=== PATIENT | male | born 1960 ===

== ENCOUNTER 2017-11-28 05:18 | Inpatient (IN) | payer OTHER ==
[2017-11-28] VITALS (11 sets, daily range): BP systolic 113–136; BP diastolic 58–78
[~2017-11-28] VITALS: Ht 177.8 cm; Wt 115.8 kg
[~2017-11-28 05:18] MED LIST: ATORVASTATIN CA20 MG ORAL; FENOFIBRATE54 MG ORAL; GLIPIZIDE5 MG ORAL; LISINOPRIL10 MG ORAL; METFORMIN HCL850 M1 ORAL
[2017-11-28] MEDS ORDERED: celeBREX 200mg Cap **SURGERY PATIENTS ONLY ORAL ONE (06:00)
[2017-11-28] MEDS ORDERED: ceFAZolin sod 1 GM in D5W 110 ML IVP ONE (06:00)
[2017-11-28] MEDS ORDERED: Midazolam 2mg/2ml Inj ONE (06:12)
[2017-11-28] MEDS ORDERED: fentaNYL 100 mcg/2 mL IV ONE (06:12)
[2017-11-28] MEDS ORDERED: Duramorph PF 5mg/10ml amp ONE (06:15)
[2017-11-28] MEDS ORDERED: Succinylcholine 20mg/ml 10ml vial ONE (06:16)
[2017-11-28] MEDS ORDERED: Propofol 200mg/20ml IV ONE (06:25)
[2017-11-28] MEDS ORDERED: EPINEPHrine 1mg/1ml Amp ONE (06:44)
[2017-11-28] MEDS ORDERED: Bupivacaine 0.5% Inj 30 ml vial INJ ONE (06:45)
[2017-11-28] MEDS ORDERED: Bacitracin 50000 Units Vial ONE (06:45)
[2017-11-28] MEDS ORDERED: NeoSporin Gu Irrig 1ml Amp IRRIG ONE (06:45)
--- NOTE | 2017-11-28 06:51 | Pre-Procedure Note/Attestation ---
Pre-Procedure Note/Attestation Complete Prior to Procedure Planned Procedure: left Procedure Narrative: left total hip arthroplasty Indications for Procedure Pre-Operative Diagnosis: left hip avn Attestation I attest that I discussed the nature of the procedure; its benefits; risks and complications; and alternatives (and the risks and benefits of such alternatives ), prior to the procedure, with the patient (or the patient's legal tour sales representative). I attest that, if there was a reasonable possibility of needing a blood transfusion, the patient (or the patient's legal tour sales representative) was given the [facility] standardized written summary, pursuant to the Pool Yolanda Blood Safety Act ([place] Health and Safety Code # 1645, as amended). I attest that I re-evaluated the patient just prior to the surgery and that there has been no change in the patient's H&P, except as documented below: none Franklin Rinaldi MD Nov 28, 2017 06:51
[2017-11-28] MEDS ORDERED: NS Irrig 1000ml ONE (07:00)
[2017-11-28] MEDS ORDERED: LR 1000ml ONE (07:00)
[2017-11-28] MEDS ORDERED: Sterile Water Irrig 1000ml IRRIG ONE (07:00)
[2017-11-28] MEDS ORDERED: Tranexamic Acid 1,000 MG in NS 65 ML IVPB ONE (07:00)
[2017-11-28] MEDS ORDERED: NS Irrig 2000ml IRRIG ONE (07:00)
[2017-11-28] MEDS ORDERED: ePHEDrine 50mg/ml Inj ONE (07:41)
[2017-11-28] MEDS ORDERED: Sodium Chloride 10ml vial INJ ONE (07:42)
--- NOTE | 2017-11-28 08:08 | Anethesia Preoperative Eval ---
Anesthesia Pre-op PMH/ROS General Date of Evaluation: Nov 28, 2017 Time of Evaluation: 06:52 Anesthesiologist: Anny ASA Score: ASA 3 Mallampati Score Class I : Soft palate, uvula, fauces, pillars visible Class II: Soft palate, uvula, fauces visible Class III: Soft palate, base of uvula visible Class IV: Only hard plate visible Mallampati Classification: Class II Surgeon: Glenny Diagnosis: L hip DJD Surgical Procedure: L hip arthroplasty Anesthesia History: none Family History: no anesthesia problems Allergies: Coded Allergies: ACETAMINOPHEN (Verified Allergy, Unknown, 11/22/17) HYDROCODONE (Verified Adverse Reaction, Severe, short of breast; tightness in the chest, 11/27/17) Medications: see eMAR Past Medical History Cardiovascular: Reports: HTN; Denies: CAD, KS, valve dz, arrhythmia, other Pulmonary: Denies: asthma, COPD, JENNY, other Gastrointestinal/Genitourinary: Reports: GERD - mild; Denies: CRI, ESRD, other Neurologic/Psychiatric: Reports: other - chronic pain; Denies: dementia, CVA, depression/anxiety, TIA Endocrine: Reports: DM - stable on pills; Denies: hypothyroidism, steroids, other HEENT: Denies: cataract (L), cataract (R), glaucoma, LITTLE TRAVERSE (L), LITTLE TRAVERSE (R), other Hematology/Immune: Denies: anemia, DVT, bleeding disorder, other Musculoskeletal/Integumentary: Reports: DJD Other: other - overweight PMH Narrative: as above PSxH Narrative: see H&P Anesthesia Pre-op Phys. Exam Physician Exam Last Vital Signs Date Time Temp Pulse Resp B/P (MAP) Pulse Ox O2 Delivery O2 Flow Rate FiO2 11/28/17 06:05 97.8 55 18 136/77 97 Room Air 97.8 Constitutional: NAD Neurologic: CN 2-12 intact Cardiovascular: RRR, no M/R/G Respiratory: CTA Gastrointestinal: S/NT/ND Airway Exam Mallampati Score: Class II MO: full Neck: short ROM: full Teeth: missing Dentures: no upper, no lower Anesthesia Pre-op A/P Labs see chart Accucheck 119 at admission Studies Pre-op Studies: EKG - NSR, CXR - WNL Risk Assessment & Plan Assessment: ASA 3 Plan: SAB vs GA Status Change Before Surgery: No Pre-Antibiotics Drug: Ancef 2 gr. Given Within 1 Hr of Incision: Yes Time Given: 08:28 Jose Mccormick MD Nov 28, 2017 08:08
[2017-11-28] MEDS ORDERED: LR 1000ml 1,000 ML IVLG SCH (08:09)
[2017-11-28] MEDS ORDERED: Ketorolac 30mg Inj IV PRN (08:15)
[2017-11-28] MEDS ORDERED: fentaNYL 100 mcg/2 mL IV PRN (08:15)
[2017-11-28] MEDS ORDERED: Meperidine 50mg/ml Inj(FOR RIGORS ONLY) IV PRN (08:15)
[2017-11-28] MEDS ORDERED: DiphenhydrAMINE 50mg/ml Inj IVP PRN (08:15)
[2017-11-28] MEDS ORDERED: Docusate 100mg cap ORAL SCH (09:00)
[2017-11-28] MEDS ORDERED: Enoxaparin 40mg Inj SUBQ SCH (09:00)
[2017-11-28] MEDS ORDERED: celeBREX 200mg Cap **SURGERY PATIENTS ONLY ORAL SCH (09:00)
[2017-11-28] MEDS ORDERED: oxyCONTIN 20mg tab ORAL SCH (09:00)
--- NOTE | 2017-11-28 09:45 | Brief Operative Note ---
Immediate Post Operative Note Operative Note Chief Complaint: left hip pain Pre-op Diagnosis: left hip avn Procedure: left total hip arthroplasty Post-op Diagnosis: same as pre-op Findings: consistent w/pre-op dx studies Surgeon: md landry [employer] Supervisor: marcus giraldo Anesthesiologist: md grant Anesthesia: general Specimen: yes Complications: none Condition: stable Fluids: ns Estimated Blood Loss: minimal Drains: none Implant(s) used?: Yes - honeycutt and nephGeraldine Muñiz Nov 28, 2017 09:45
--- NOTE | 2017-11-28 09:53 | Immediate Post-Op Evaluation ---
Immediate Post-Op Evalulation Immediate Post-Op Evalulation Procedure: L total hip arthroplasty Date of Evaluation: Nov 28, 2017 Time of Evaluation: 09:52 IV Fluids: 1800 Blood Products: none Estimated Blood Loss: 200 Urinary Output: 120 Blood Pressure Systolic: 114 Blood Pressure Diastolic: 64 Pulse Rate: 68 Respiratory Rate: 20 O2 Sat by Pulse Oximetry: 99 Temperature (Fahrenheit): 98.3 Pain Score (1-10): 2 Nausea: No Vomiting: No Complications none Patient Status: reacts, patent, none Hydration Status: adequate Jose Mccormick MD Nov 28, 2017 09:53
--- NOTE | 2017-11-28 10:11 | Diagnostic Imaging Report ---
Indication: Intraoperative imaging Technique: One view of the pelvis Comparison: none Findings: Intraoperative imaging demonstrates the acetabular cup of a left hip arthroplasty prosthesis, and a femoral broach. The catheter is in place. Impression: Intraoperative imaging, as described
--- NOTE | 2017-11-28 11:15 | Operative Note - Dictated ---
DATE OF OPERATION: 11/28/2017 PREOPERATIVE DIAGNOSIS: Left hip end-stage arthritis. POSTOPERATIVE DIAGNOSIS: Left hip end-stage arthritis. PROCEDURE: Left total hip arthroplasty using and Nephew system, size 10 Anthology femoral component with standard offset, size 54 mm R3 3-hole hemispheric cup, 36-mm Oxinium head with an ultra cross-linked poly with 20-degree lip liner, with 2 dome screws in the acetabular cup. SURGEON: Franklin Rinaldi M.D. PEDIATRICIAN MANAGING PARTNER: Geraldine Wolfe PA-C. ANESTHESIOLOGIST: Dr. Mccormick. ANESTHESIA: Spinal anesthesia. ESTIMATED BLOOD LOSS: A 150 mL. COMPLICATIONS: None. BRIEF HISTORY: The patient is a pleasant 57-year-old gentleman who has had ongoing left hip pain. This has been intractable pain. He has not been able to really ambulate very well and he has had left-sided anterior groin pain. He failed nonoperative treatment. After full discussion of the risks and benefits of the surgery including infection, bleeding, neurovascular complication, possibility of leg-length discrepancy, possibility of DVT and PE, continued pain, limping, and need for revision arthroplasty down the line as well as possible resection arthroplasty in case of infection, and other surgery that may come about, he opted for surgical treatment as described above. OPERATIVE PROCEDURE: The patient was brought to the operating room and placed supine. All pressure points were well padded. Spinal anesthesia was induced. The left hip was prepped and draped in usual sterile fashion. The patient was placed in right lateral decubitus position with peg board and all pressure points were well padded prior to prepping and draping. Once this was completed and the patient was prepped and draped, the standard posterolateral approach to the hip was undertaken after time-out was performed. Preoperative antibiotics were given and tranexamic acid was given. A posterolateral approach was undertaken and the gluteal fascia was opened and tensor fascia was opened. Charnley retractors were placed and the short external rotators were divided and the capsule was T'd. The femoral head was dislocated and a standard femoral neck cut was performed without any complication. Once this was completed, the head measured 51 mm. Anterior acetabular retractors were placed in and smooth K-wires were placed around the acetabulum for exposure. The labrum was resected and sequential reaming was performed to medialize from 47 mm up to 54 mm. The inclination and retroversion was recreated. Once this was performed, the wounds were thoroughly irrigated. A 54-mm trial component was placed and appeared to be well-seated. At this point, a 54-mm R3 acetabular cup was then placed and placed in approximately 45 degrees of inclination and 30 degrees of anteversion and was malleted in. There was excellent stability of the cup. At this point, two additional dome screws were placed in. An ultra cross-linked liner was then placed in with a 20-degree lip. This was locked in without any complications. At this point, care was given to the femoral side. The femur was internally rotated. The box press operator was used to lateralize the entry point. The entry point was obtained using a canal finder. The sequential broaching was performed all the way up to size 10 broach, which provided excellent stability axially and rotationally. At this point, the sizing of the neck was performed and +8 mm appeared to be the right size. Intraoperative x-rays were obtained which showed that the canal was filled and acetabular cup was in excellent position and was medialized. Wounds were thoroughly irrigated using copious amount of fluid. At this point, the trial components were removed and the canal was thoroughly irrigated using copious amount of fluid. At this point, a size 10 femoral component was then inserted and seated in without any complication. This provided excellent stability. The canal was completely filled. There was excellent position of the femoral component and acetabular component. At this point, sizing was performed and +8 neck length appeared to be the right size. Therefore at this point, a +8 Oxinium head was then applied and Stone taper was dried. Wounds were thoroughly irrigated using copious amount of fluid. The Stone taper on the femoral head was then checked and rechecked, and appeared to be perfect. At this point, the entire construct was reduced. The length appeared to be perfect. Leg lengths were checked and appeared to be perfect, and stability was checked at 0, 30 degrees, 45 degrees, and 90 degrees of internal rotation with hip in neutral abduction and there was excellent stability, and there was no dislocation all the way up to 75 to 80 degrees of internal rotation. Anterior stability was checked and appeared to be perfect. The leg lengths as measured from the knee and the foot were checked and appeared to be perfect. At this point, all wounds were thoroughly irrigated using copious amount of fluid. The short external rotators were closed using #2 FiberWire suture. Intraoperative final x-rays were obtained and the leg lengths appeared to be perfect and component placement was perfect. Wounds were thoroughly irrigated and the tensor fascia was closed using #1 Vicryl suture. Subcutaneous tissue was closed using 2-0 Vicryl suture and skin was closed using 3-0 Monocryl suture. Lap counts and instrument counts were all correct. Abduction pillow was applied. The patient was taken to recovery room in stable condition. Franklin Rinaldi M.D. DR: Elder JOB#: [id number] CC: BRENNA
--- NOTE | 2017-11-28 11:31 | Diagnostic Imaging Report ---
Indication: Postoperative, status post hip surgery Technique: One view of the pelvis Comparison: 2 hours earlier Findings: Interim completion of left hip arthroplasty, with acetabular cup and femoral stem in place in good position. Air from the surgical exposure is seen within the soft tissues. There is a Jauregui catheter Impression: Postoperative left hip, as described. No unusual features
[2017-11-28] MEDS ORDERED: Milk of Magnesia 30ml Ud ORAL PRN (12:00)
[2017-11-28] MEDS ORDERED: Morphine Sulfate 2mg/ml Inj IVP PRN ×2 (12:30)
[2017-11-28] MEDS ORDERED: Morphine Sulfate 4mg/ml Inj IVP PRN (12:30)
[2017-11-28] MEDS: NovoLOG Insulin Flexpen SUBQ SCH ×3 (12:34→21:22)
[2017-11-28] MEDS: 1/2NS w/KCl 20mEq 1000ml 1,000 ML IV SCH ×2 (12:34→23:39)
[2017-11-28] MEDS: Docusate 100mg cap ORAL SCH ×2 (12:37→17:15)
[2017-11-28] MEDS ORDERED: D5 1/2NS w/KCl 20mEq 1,000 ML IV SCH (13:00)
[2017-11-28] MEDS ORDERED: ceFAZolin sod 2 GM in D5W 110 ML IV SCH (16:30)
[2017-11-28] MEDS: ceFAZolin 2gm/50ml Premix 50 ML IV SCH ×2 (17:05→23:39)
[2017-11-28] MEDS: Atorvastatin 20mg tab ORAL SCH (21:11)
[2017-11-28] MEDS: oxyCONTIN 20mg tab ORAL SCH (21:12)
--- NOTE | 2017-11-28 21:33 | General Progress Note ---
Assessment/Plan Status Narrative S/P TOTAL HIP [id number] PHYSICAL THERPAY OCCUPATIONAL THERAPY PERIOPERATIE ANTIBIOTIC PROPHYLAXIS PAINCONTROL DVT PROPHYLAXIS HISTOYR OF DIABETES ADA DIET ACCU CHECK SLIDING SCALE MONITOR BMP HOLD METFORMIN HOLD GLIPIZIDE IT CAN CAUSE HYPOGLYCEMIA PERIOPERATIVELY START JANUVIA 100 DAILY FOLLW CLOSLEY MONITOR CBC AND BMP DAILY. Subjective Date patient seen: Nov 28, 2017 Time patient seen: 21:30 Allergies: Coded Allergies: ACETAMINOPHEN (Verified Allergy, Unknown, 11/22/17) HYDROCODONE (Verified Adverse Reaction, Severe, short of breast; tightness in the chest, 11/27/17) Subjective S/P TOTAL HIP ARTHROPLASTY DOIGN WELL NO CHRISSIE STPAIN NO SOB NO HYPOGLYCEMIA NO HEADACHE NODIPLOPIA TOOK OXYCONTIN NO PAIN NOW. Objective Last 24 Hour Vital Signs Date Time Temp Pulse Resp B/P (MAP) Pulse Ox O2 Delivery O2 Flow Rate FiO2 11/28/17 16:00 98.7 65 18 136/77 100 Room Air 98.7 11/28/17 11:23 98.7 52 18 125/70 100 Nasal Cannula 3 98.7 11/28/17 10:45 98.7 61 17 126/69 100 Nasal Cannula 3 98.7 11/28/17 10:30 54 16 131/68 100 Nasal Cannula 3 11/28/17 10:15 56 17 124/72 100 Nasal Cannula 3 11/28/17 10:05 54 18 115/68 100 Nasal Cannula 3 11/28/17 09:55 56 17 114/65 100 Nasal Cannula 3 11/28/17 09:53 208.9 68 20 99 11/28/17 09:50 65 18 113/68 100 Simple Mask 6 11/28/17 09:45 98.2 62 20 114/58 100 Simple Mask 6 98.2 11/28/17 06:05 97.8 55 18 136/77 97 Room Air 97.8 Intake and Output 11/27/17 11/28/17 19:00 07:00 # Voids 1 Height (Feet): 5 Height (Inches): 10.00 Weight (Pounds): 210 General Appearance: WD/WN EENT: PERRL/EOMI Neck: non-tender Cardiovascular: normal rate, regular rhythm, no JVD Respiratory/Chest: lungs clear Abdomen: soft Extremities: other - NO EDEMA Grant Patel MD Nov 28, 2017 21:33
[2017-11-29] VITALS: BP 116/66
[2017-11-29 04:00] VITALS: BP 121/68
[2017-11-29] MEDS: oxyCODONE 5mg IR tab ORAL PRN (06:15)
[2017-11-29] MEDS: NovoLOG Insulin Flexpen SUBQ SCH ×4 (06:20→21:27)
[2017-11-29 07:42] VITALS: BP 131/64
--- NOTE | 2017-11-29 07:46 | Orthopedic Progress Note ---
Orthopedic - Progress Note Subjective Symptoms: improved Objective Vital Signs Last 24 Hour Vital Signs Date Time Temp Pulse Resp B/P (MAP) Pulse Ox O2 Delivery O2 Flow Rate FiO2 11/29/17 07:42 98.5 74 18 131/64 99 Room Air 98.5 11/29/17 04:00 97.8 62 18 121/68 99 Room Air 97.8 11/29/17 00:00 98.2 61 18 116/66 98 Room Air 98.2 11/28/17 20:00 98.4 63 18 117/78 100 Room Air 98.4 11/28/17 16:00 98.7 65 18 136/77 100 Room Air 98.7 11/28/17 11:23 98.7 52 18 125/70 100 Nasal Cannula 3 98.7 11/28/17 10:45 98.7 61 17 126/69 100 Nasal Cannula 3 98.7 11/28/17 10:30 54 16 131/68 100 Nasal Cannula 3 11/28/17 10:15 56 17 124/72 100 Nasal Cannula 3 11/28/17 10:05 54 18 115/68 100 Nasal Cannula 3 11/28/17 09:55 56 17 114/65 100 Nasal Cannula 3 11/28/17 09:53 208.9 68 20 99 11/28/17 09:50 65 18 113/68 100 Simple Mask 6 11/28/17 09:45 98.2 62 20 114/58 100 Simple Mask 6 98.2 I&O Intake and Output 11/28/17 11/29/17 19:00 07:00 Intake Total 2260 ml 875 ml Output Total 350 ml 980 ml Balance 1910 ml -105 ml Intake Oral 200 ml IV Total 2260 ml 675 ml Output Urine Total 150 ml 980 ml Estimated Blood Loss 200 ml Wound: clean, dry, intact Drains: none Neuro Status: normal Vascular Status: normal Additional Comments xray: excellent Assessment Post-op Diagnosis POD 1 Procedure Performed left total hip arthroplasty Plan Plan: discharge plan - snf on monday, other - todays labs pending. bubba f/u Geraldine Wolfe Nov 29, 2017 07:46
[2017-11-29 08:04] LABS: BASOPHILS % (AUTO) 0.8 % (0.0-2.0); EOSINOPHILS % (AUTO) 1.1 % (0.0-3.0); HEMATOCRIT 33.2 % (42.0-52.0); HEMOGLOBIN 11.3 G/DL (14.2-18.0); LYMPHOCYTES % (AUTO) 21.7 % (20.0-45.0); MEAN CORPUSCULAR VOLUME 87 FL (80-99); MONOCYTES % (AUTO) 9.4 % (1.0-10.0); PLATELET COUNT 136 K/UL (150-450); RED BLOOD COUNT 3.81 M/UL (4.70-6.10); RED CELL DISTRIBUTION WIDTH 11.9 % (11.6-14.8); WHITE BLOOD COUNT 8.9 K/UL (4.8-10.8)
[2017-11-29 08:21] LABS: ANION GAP 6 mmol/L (5-15); BLOOD UREA NITROGEN 14 mg/dL (7-18); CALCIUM 8.3 MG/DL (8.5-10.1); CARBON DIOXIDE 26 MMOL/L (21-32); CHLORIDE 103 MMOL/L (98-107); CREATININE 0.8 MG/DL (0.55-1.30); POTASSIUM 3.7 MMOL/L (3.5-5.1); SODIUM 135 MMOL/L (136-145)
[2017-11-29] MEDS: ceFAZolin 2gm/50ml Premix 50 ML IV SCH ×2 (08:36→16:34)
[2017-11-29] MEDS: Docusate 100mg cap ORAL SCH ×3 (08:36→17:59)
[2017-11-29] MEDS: Lisinopril 10mg tab ORAL SCH (08:36)
[2017-11-29] MEDS: celeBREX 200mg Cap **SURGERY PATIENTS ONLY ORAL SCH (08:37)
[2017-11-29] MEDS: oxyCONTIN 20mg tab ORAL SCH ×2 (08:38→20:57)
--- NOTE | 2017-11-29 09:21 | 48 Hour Post Anesthesia Eval ---
Post Anesthesia Evaluation Procedure: L total hip arthroplasty Date of Evaluation: Nov 29, 2017 Time of Evaluation: 07:42 Blood Pressure Systolic: 131 0: 64 Pulse Rate: 74 Respiratory Rate: 18 Temperature (Fahrenheit): 98.5 O2 Sat by Pulse Oximetry: 99 Airway: patent Nausea: No Vomiting: No Pain Intensity: 0 Hydration Status: adequate Cardiopulmonary Status: at baseline Mental Status/LOC: patient returned to baseline Post-Anesthesia Complications: 0 Follow-up care needed: N/A - further care as per primary team JESSICA NAVA M.D. Nov 29, 2017 09:21
[2017-11-29] MEDS: Enoxaparin 40mg Inj SUBQ SCH (09:32)
[2017-11-29 12:00] VITALS: BP 133/71
[2017-11-29] MEDS: 1/2NS w/KCl 20mEq 1000ml 1,000 ML IV SCH (16:34)
[2017-11-29 16:40] VITALS: BP 111/60
[2017-11-29 20:00] VITALS: BP 133/65
[2017-11-29] MEDS: Atorvastatin 20mg tab ORAL SCH (20:57)
--- NOTE | 2017-11-29 23:15 | Consultation ---
DATE OF CONSULTATION: 11/29/2017 CONSULTING PHYSICIAN: Grant Patel M.D. HISTORY: The patient is status post hip arthroplasty, has history of diabetes, his blood sugar is ranging okay. Denies nausea or vomiting. Denies history of chest pain. Denies any chest tightness. He denies any double vision or blurred vision. PAST MEDICAL HISTORY: Diabetes. PHYSICAL EXAMINATION: VITAL SIGNS: Stable. HEENT: Normocephalic and atraumatic. Anicteric sclerae. HEART: S1 and S2 regular. LUNGS: Clear to auscultation. ABDOMEN: Soft. EXTREMITIES: No clubbing or cyanosis. IMPRESSION: 1. Status post total hip arthroplasty. 2. Perioperative blood loss. 3. Expected anemia postoperative. 4. History of diabetes. Blood sugar is normal. CBC shows hemoglobin 8.9, hematocrit 33.2, and platelet of 136. 5. The patient also has thrombocytopenia. PLAN: 1. Continue with PT/OT. 2. Continue with DVT prophylaxis. 3. Monitor platelet daily to make sure the patient does not have HIT. 4. Laboratory was reviewed. Discussed with nursing staff. Pain control. Discontinue IV fluid. Grant Patel M.D. DR: DIGNA JOB#: [id number] CC: Franklin Rinaldi M.D.; Fax#: [phone]
[2017-11-30] VITALS: BP 145/74
[2017-11-30] MEDS: ceFAZolin 2gm/50ml Premix 50 ML IV SCH ×3 (00:04→16:46)
[2017-11-30] MEDS: oxyCODONE 5mg IR tab ORAL PRN (00:16)
[2017-11-30 04:00] VITALS: BP 127/65
[2017-11-30] MEDS: NovoLOG Insulin Flexpen SUBQ SCH ×4 (06:23→20:54)
[2017-11-30 06:32] LABS: BASOPHILS % (AUTO) 0.8 % (0.0-2.0); EOSINOPHILS % (AUTO) 2.1 % (0.0-3.0); HEMATOCRIT 32.1 % (42.0-52.0); HEMOGLOBIN 11.1 G/DL (14.2-18.0); LYMPHOCYTES % (AUTO) 22.1 % (20.0-45.0); MEAN CORPUSCULAR VOLUME 87 FL (80-99); MONOCYTES % (AUTO) 10.1 % (1.0-10.0); NEUTROPHILS % (AUTO) 64.9 % (45.0-75.0); PLATELET COUNT 126 K/UL (150-450); RED BLOOD COUNT 3.69 M/UL (4.70-6.10); RED CELL DISTRIBUTION WIDTH 11.6 % (11.6-14.8); WHITE BLOOD COUNT 9.8 K/UL (4.8-10.8)
--- NOTE | 2017-11-30 07:52 | Orthopedic Progress Note ---
Orthopedic - Progress Note Subjective Symptoms: c/o post-op hip pain Objective Vital Signs Last 24 Hour Vital Signs Date Time Temp Pulse Resp B/P (MAP) Pulse Ox O2 Delivery O2 Flow Rate FiO2 11/30/17 04:00 98.7 69 18 127/65 95 Room Air 98.7 11/30/17 00:00 99.0 88 18 145/74 97 99.0 11/29/17 20:00 97.8 74 19 133/65 97 97.8 11/29/17 16:40 98.8 67 18 111/60 94 Room Air 98.8 11/29/17 12:00 98.8 66 19 133/71 99 Room Air 98.8 11/29/17 09:37 98.5 11/29/17 09:21 209.3 74 18 99 11/29/17 08:38 98.5 11/29/17 08:36 131/64 I&O Intake and Output 11/29/17 11/30/17 19:00 07:00 Intake Total 240 ml 50 ml Output Total 400 ml Balance -160 ml 50 ml Intake Oral 240 ml IV Total 50 ml Output Urine Total 400 ml # Voids 1 Wound: clean, dry, intact Drains: none Neuro Status: normal Assessment Post-op Diagnosis s/p Left DEN POD #2 Plan Plan: PT, pain management, discharge plan Additional Comments Plan on Discharge to rehab tomorrow. Case management involved. D/C Franklin Lanier MD Nov 30, 2017 07:52
[2017-11-30 08:00] VITALS: BP 146/72
[2017-11-30] MEDS: Docusate 100mg cap ORAL SCH ×3 (08:50→17:41)
[2017-11-30] MEDS: Lisinopril 10mg tab ORAL SCH (08:51)
[2017-11-30] MEDS: celeBREX 200mg Cap **SURGERY PATIENTS ONLY ORAL SCH (08:51)
[2017-11-30] MEDS: oxyCONTIN 20mg tab ORAL SCH ×2 (08:52→20:50)
[2017-11-30] MEDS: Enoxaparin 40mg Inj SUBQ SCH (09:00)
[2017-11-30 12:00] VITALS: BP 139/71
--- NOTE | 2017-11-30 13:59 | General Progress Note ---
Assessment/Plan Status Narrative s/p THR Assessment/Plan diabvetes accucheck sliding scale paincotnrol pt ot doing well dc planning. Subjective Date patient seen: Nov 30, 2017 Time patient seen: 13:58 Constitutional: Reports: no symptoms HEENT: Reports: no symptoms Cardiovascular: Reports: no symptoms Allergies: Coded Allergies: ACETAMINOPHEN (Verified Allergy, Unknown, 11/22/17) HYDROCODONE (Verified Adverse Reaction, Severe, short of breast; tightness in the chest, 11/27/17) Subjective doing ok has pain s/p total hip arthroplasty diabet on glipizide and metformin at home in hospital given januvia nd insulin sliding scale Objective Last 24 Hour Vital Signs Date Time Temp Pulse Resp B/P (MAP) Pulse Ox O2 Delivery O2 Flow Rate FiO2 11/30/17 12:00 98.3 68 20 139/71 96 Room Air 98.3 11/30/17 08:51 146/72 11/30/17 08:00 98.2 82 20 146/72 96 Room Air 98.2 11/30/17 04:00 98.7 69 18 127/65 95 Room Air 98.7 11/30/17 00:00 99.0 88 18 145/74 97 99.0 11/29/17 20:00 97.8 74 19 133/65 97 97.8 11/29/17 16:40 98.8 67 18 111/60 94 Room Air 98.8 Intake and Output 11/29/17 11/30/17 19:00 07:00 Intake Total 240 ml 50 ml Output Total 400 ml Balance -160 ml 50 ml Intake Oral 240 ml IV Total 50 ml Output Urine Total 400 ml # Voids 1 Laboratory Tests 11/30/17 05:40: White Blood Count 9.8, Red Blood Count 3.69L, Hemoglobin 11.1L, Hematocrit 32.1L , Mean Corpuscular Volume 87, Mean Corpuscular Hemoglobin 30.2, Mean Corpuscular Hemoglobin Concent 34.7, Red Cell Distribution Width 11.6, Platelet Count 126L, Mean Platelet Volume 9.7, Neutrophils (%) (Auto) 64.9, Lymphocytes ( %) (Auto) 22.1, Monocytes (%) (Auto) 10.1H, Eosinophils (%) (Auto) 2.1, Basophils (%) (Auto) 0.8 Height (Feet): 5 Height (Inches): 10.00 Weight (Pounds): 255 General Appearance: WD/WN EENT: normal ENT inspection Cardiovascular: normal rate, regular rhythm, no JVD Respiratory/Chest: chest wall non-tender Abdomen: soft Grant Patel MD Nov 30, 2017 13:59
[2017-11-30 16:00] VITALS: BP 124/68
[2017-11-30 20:00] VITALS: BP 140/76
[2017-11-30] MEDS: Atorvastatin 20mg tab ORAL SCH (20:49)
[2017-12-01] VITALS: BP 127/66
[2017-12-01 04:00] VITALS: BP 128/66
[2017-12-01 06:19] LABS: EOSINOPHILS % (AUTO) 3.3 % (0.0-3.0); HEMATOCRIT 31.4 % (42.0-52.0); HEMOGLOBIN 10.9 G/DL (14.2-18.0); LYMPHOCYTES % (AUTO) 29.2 % (20.0-45.0); MEAN CORPUSCULAR VOLUME 87 FL (80-99); MONOCYTES % (AUTO) 8.8 % (1.0-10.0); NEUTROPHILS % (AUTO) 57.7 % (45.0-75.0); PLATELET COUNT 133 K/UL (150-450); RED BLOOD COUNT 3.61 M/UL (4.70-6.10); RED CELL DISTRIBUTION WIDTH 11.8 % (11.6-14.8); WHITE BLOOD COUNT 9.8 K/UL (4.8-10.8)
[2017-12-01] MEDS: NovoLOG Insulin Flexpen SUBQ SCH ×2 (06:27→12:04)
--- NOTE | 2017-12-01 07:20 | Orthopedic Progress Note ---
Orthopedic - Progress Note Subjective Symptoms: improved Objective Vital Signs Laboratory Tests Test 12/01/17 05:05 White Blood Count 9.8 K/UL (4.8-10.8) Red Blood Count 3.61 M/UL (4.70-6.10) L Hemoglobin 10.9 G/DL (14.2-18.0) L Hematocrit 31.4 % (42.0-52.0) L Mean Corpuscular Volume 87 FL (80-99) Mean Corpuscular Hemoglobin 30.0 PG (27.0-31.0) Mean Corpuscular Hemoglobin Concent 34.5 G/DL (32.0-36.0) Red Cell Distribution Width 11.8 % (11.6-14.8) Platelet Count 133 K/UL (150-450) L Mean Platelet Volume 10.1 FL (6.5-10.1) Neutrophils (%) (Auto) 57.7 % (45.0-75.0) Lymphocytes (%) (Auto) 29.2 % (20.0-45.0) Monocytes (%) (Auto) 8.8 % (1.0-10.0) Eosinophils (%) (Auto) 3.3 % (0.0-3.0) H Basophils (%) (Auto) 1.0 % (0.0-2.0) Last 24 Hour Vital Signs Date Time Temp Pulse Resp B/P (MAP) Pulse Ox O2 Delivery O2 Flow Rate FiO2 12/01/17 04:00 98.9 72 18 128/66 97 Room Air 98.9 12/01/17 00:00 99.0 77 18 127/66 97 Room Air 99.0 11/30/17 20:00 97.7 73 19 140/76 98 Room Air 97.7 11/30/17 16:00 97.7 66 22 124/68 98 Room Air 97.7 11/30/17 12:00 98.3 68 20 139/71 96 Room Air 98.3 11/30/17 08:51 146/72 11/30/17 08:00 98.2 82 20 146/72 96 Room Air 98.2 I&O Intake and Output 11/30/17 12/01/17 19:00 07:00 Intake Total 360 ml Balance 360 ml Intake Oral 360 ml # Voids 3 Wound: clean, dry, intact Drains: none Neuro Status: normal Vascular Status: normal Assessment Post-op Diagnosis POD 3 Procedure Performed left total hip arthroplasty Plan Plan: discharge plan - to snf today at 11am. f/u dr carlie montesinos outpt on 12/20 Geraldine Wolfe Dec 01, 2017 07:20
--- NOTE | 2017-12-01 07:22 | Discharge Summary ---
Discharge Summary Hospital Course Date of Admission Nov 28, 2017 at 05:18 Date of Discharge 12/01/17 Admitting Diagnosis left hip AVN Reason for Hospitalization: s/p lt DEN HPI Nitesh David Jr is a 57 year old male who was admitted on Nov 28, 2017 at 05: 18 for Idiopathic Aseptic Necrosis Of Left Femur Consultations Jorge Procedures left DEN Hospital Course s/p surgery course of recovery uneventful pain management incision C/D/I n/v intact ambulated with PT, fall precautions hip surgery precautions diet as tolerated, voided freely stable for dc to SNF for rehab fip with surgeon as outpt postop dc instructions provided DISCHARGE DIAGNOSIS left hip avascular necrosis s/p left total hip arthroplasty diabetes mellitus anemia ( mild, stable) Discharge Medications Continued Medications: Atorvastatin Calcium* (Atorvastatin Calcium*) 20 Mg Tablet 20 MG ORAL BEDTIME, TAB (This prescription has been renewed) Enoxaparin* (Lovenox*) 40 Mg/0.4 Ml Inj 40 MG SUBQ DAILY for 14 Days (This prescription has been renewed) Fenofibrate (Fenofibrate) 54 Mg Tablet 54 MG ORAL DAILY, #30 TAB 0 Refills (This prescription has been renewed) Glipizide* (Glipizide*) 5 Mg Tablet 5 MG ORAL HS, TAB (This prescription has been renewed) Lisinopril* (Lisinopril*) 10 Mg Tablet 10 MG ORAL DAILY, TAB (This prescription has been renewed) Metformin Hcl* (Metformin Hcl*) 850 Mg Tablet 850 MG ORAL BIDAC, TAB (This prescription has been renewed) Discharge Condition Upon Discharge: improving, stable Discharge Disposition Patient was discharged to SNF/Subacute Facility(03) f/u with dr sexton 12/20 as outpt continue abd pillow. lovenox for full 14 days post op. WBAT Discharge Instructions Discharge Instructions Special Instructions Geraldine Wolfe Dec 01, 2017 07:22 Mohini Trinidad NP Dec 03, 2017 07:14
[2017-12-01] MEDS ORDERED: Miralax 17gm pkt ORAL PRN (07:30)
[2017-12-01 08:00] VITALS: BP 141/72
[2017-12-01 08:48] VITALS: BP 141/72
[2017-12-01] MEDS: oxyCONTIN 20mg tab ORAL SCH (08:48)
[2017-12-01] MEDS: celeBREX 200mg Cap **SURGERY PATIENTS ONLY ORAL SCH (08:48)
[2017-12-01] MEDS: Lisinopril 10mg tab ORAL SCH (08:48)
[2017-12-01] MEDS: Docusate 100mg cap ORAL SCH (08:49)
[2017-12-01] MEDS: Enoxaparin 40mg Inj SUBQ SCH (08:50)
[2017-12-01] MEDS ORDERED: LOVENOX10 M4 SUBQ (09:28)
== END 2017-12-01 12:45 | DRG 470 ==
LOC: SDSOVERFLO 05:18 → 3E 10:38
PROC: 0SRB06A Replacement of Left Hip Joint with Oxidized Zirconium on Polyethylene Synthetic Substitute, Uncemented, Open Approach (ICD-10-PCS; principal; 2017-11-28 07:00)
DX: M16.12 Unilateral primary osteoarthritis, left hip (principal); M87.052 Idiopathic aseptic necrosis of left femur; E11.9 Type 2 diabetes mellitus without complications; Z79.84 Long term (current) use of oral hypoglycemic drugs; D50.0 Iron deficiency anemia secondary to blood loss (chronic); D69.6 Thrombocytopenia, unspecified; I10 Essential (primary) hypertension; E78.5 Hyperlipidemia, unspecified
CPT/HCPCS: 36415; 72170; 80048; 82962; 85025; 86850; 86900; 86901; 86920; 87081; 94003; 94150; J1815; J2250